=== PATIENT | female | born 1990 | race Two or more races ===

== ENCOUNTER → 2018-05-15 | Outpatient (CLI) | payer OTHER | LOC: CIMAGING 10:28 | PROVIDERS: ATTEND Surgery | DX: D17.79 Benign lipomatous neoplasm of other sites (principal) | CPT/HCPCS: 76882-PO ==

== ENCOUNTER 2018-06-21 11:23 | Day surgery (SDC) | payer OTHER ==
[2018-06-21] MEDS ORDERED: ceFAZolin 2 GM/DEXTROSE 100 ML IV ONE (11:31)
[2018-06-21] MEDS ORDERED: BUPIVACAINE 0.25% 30 ML SDV ONE ×2 (11:32→14:12)
[2018-06-21] MEDS ORDERED: LR 1,000 ML IV ONE (11:32)
--- NOTE | 2018-06-21 12:12 | POSTANESTH ---
Post Anesthetic Evaluation Cardiovascular Status: Normal, Stable Respiratory Status: Normal, Stable Level of Consciousness/Mental Status: Can Participate in Eval, Mildly Sleepy, Arousable Pain Control: Adequate, Prn Tx Ordered Nausea/Vomiting Control: Adequate, Prn Tx Ordered Complications Possibly Related to Anesthesia: None Noted
--- NOTE | 2018-06-21 12:13 | PDANEPAE ---
ANE History of Present Illness 27 yo female with posterior L shoulder lipoma for excision. ANE Past Medical History - Cardiovascular History Hx Hypertension: No Hx Arrhythmias: No Hx Chest Pain: No Hx Coronary Artery / Peripheral Vascular Disease: No Hx CHF / Valvular Disease: No Hx Palpitations: No - Pulmonary History Hx COPD: No Hx Asthma/Reactive Airway Disease: No Hx Recent Upper Respiratory Infection: No Hx Oxygen in Use at Home: No Hx Sleep Apnea: No Sleep Apnea Screening Result - Last Documented: Negative - Neurologic History Hx Cerebrovascular Accident: No Hx Seizures: No Hx Dementia: No - Endocrine History Hx Diabetes: No Hypothyroid: Yes Hyperthyroid: No Obesity: no - Renal History Hx Renal Disorders: No - Liver History Hx Hepatic Disorders: No - Neurological & Psychiatric Hx Hx Neurological and Psychiatric Disorders: Yes Neurological / Psychiatric History Comment: anxiety - prescribed a med, but does not take it - Cancer History Hx Cancer: No - Congenital Disorder History Hx Congenital Disorders: No - GI History Hx Gastrointestinal Disorders: No - Other Health History Other Health History: none - Chronic Pain History Chronic Pain: No - Surgical History Prior Surgeries: none ANE Review of Systems Review of Systems: - Exercise capacity METS (RN): 4 METS - Systems Constitutional: Reports: no symptoms Neurological: Reports: anxiety ANE Patient History - Allergies Allergies/Adverse Reactions: No Known Allergies Allergy (Verified 06/04/18 12:06) - Home Medications Home Medications: Levothyroxine 06/04/18 [Last Taken 06/21/18 07:00] - NPO status NPO Since - Liquids (Date): 06/21/18 NPO Since - Liquids (Time): 10:15 NPO Since - Solids (Date): 05/11/18 NPO Since - Solids (Time): 23:30 - Anes Hx Hx Anesthesia Complications (with details): never had anesthesia - Smoking Hx Smoking Status: Never smoked - Alcohol Use Alcohol Use: Occasionally (3/month) - Family Anes Hx Family Anes Hx: neg - N/A Family Hx Anesthesia Complications: none ANE Labs/Vital Signs - Vital Signs Blood Pressure: 71/62 Heart Rate: 55 Respiratory Rate: 18 O2 Sat (%): 97 Height: 157.48 cm Weight: 52.163 kg ANE Physical Exam - Airway Neck exam: FROM Mallampati Score: Class 1 Mouth exam: normal dental/mouth exam - Pulmonary Pulmonary: clear to auscultation - Cardiovascular Cardiovascular: regular rate and rhythym - ASA Status ASA Status: II ANE Anesthesia Plan Anesthesia Plan: GA w LMA
[2018-06-21] MEDS ORDERED: ONDANSETRON DISINTEGRATING 4 MG TAB PO PRN (13:30)
[2018-06-21] MEDS ORDERED: HYDROCODONE/APAP 5/325 TAB PO PRN ×2 (13:30→14:31)
--- NOTE | 2018-06-21 13:30 | PDHPUP ---
History & Physical Update H&P update statement: This history and physical update is based on an assessment of the patient which was completed after admission or registration (within 24 hours), but prior to the surgery/procedure. H&P update: H&P reviewed & patient examined, no change in patient's condition since H&P completed (left posterior chest wall lipoma marked )
[2018-06-21] MEDS ORDERED: MIDAZOLAM 2 MG/2 ML VIAL IVP ONE (13:31)
[2018-06-21] MEDS ORDERED: MIDAZOLAM 2 MG/2 ML VIAL ONE ×2 (13:35→13:38)
[2018-06-21] MEDS ORDERED: LIDOCAINE 2% 5 ML SDV ONE (13:43)
[2018-06-21] MEDS ORDERED: PROPOFOL/EMULSION 500 MG/50 ML BOTTLE IV ONE (13:43)
[2018-06-21] MEDS ORDERED: DEXAMETHASONE 4 MG/ML VIAL ONE (13:43)
[2018-06-21] MEDS ORDERED: fentaNYL 100 MCG/2 ML INJ ONE (13:43)
[2018-06-21] MEDS ORDERED: PHENYLEPHRINE HCL 100 MCG/ML SYR ONE (14:02)
[2018-06-21] MEDS ORDERED: ONDANSETRON 4 MG/2 ML VIAL ONE (14:12)
[2018-06-21] MEDS ORDERED: KETOROLAC 30 MG/1 ML SDV ONE (14:16)
[2018-06-21] MEDS ORDERED: PROMETHAZINE HCL 25 MG/ML INJ IVP PRN (14:31)
[2018-06-21] MEDS ORDERED: ALBUTEROL 3 ML DEYVIAL IH PRN (14:31)
[2018-06-21] MEDS ORDERED: NALOXONE HCL 0.4 MG/ML INJ IVP PRN (14:31)
[2018-06-21] MEDS ORDERED: LR 500 ML IV PRN (14:31)
[2018-06-21] MEDS ORDERED: DIAZEPAM 5 MG/ML 1 ML SYR IVP PRN (14:31)
[2018-06-21] MEDS ORDERED: fentaNYL 100 MCG/2 ML INJ IVP PRN (14:31)
--- NOTE | 2018-06-21 15:13 | POSTOPPROG ---
Post Op Note Date of Operation: 06/21/18 Surgeon: Kenrick Rivera (, FACS) Factory Helper: Hanh Snyder PAS-3 Anesthesiologist: Lina Jenkins DO Anesthesia: LMA Pre-op Diagnosis: lipoma left lateral chest wall Post-op Diagnosis: same Procedure: excision soft tissue tumor left lateral chest wall Findings: 8 x 10 x 2.5 cm Inf/Abcess present in the surg proc area at time of surgery?: No EBL: Minimal (25 ml) Drains: Gordon Gurrola (7mm)
[2018-06-21 16:36] VITALS: BP 107/75
--- NOTE | 2018-06-21 20:29 | GOP ---
[f rep st] OPERATIVE REPORT DATE OF OPERATION: 06/21/2018 SURGEON: Kenrick Rivera MD, FACS BINDERY HELPER: LOREN Sheridan3. ANESTHESIA: General by laryngeal mask. ANESTHESIOLOGIST: Lina Beatty MD. PREOPERATIVE DIAGNOSIS: Left lateral chest wall soft tissue tumor. POSTOPERATIVE DIAGNOSIS: Left lateral chest wall soft tissue tumor. PROCEDURE PERFORMED: Excision of left lateral chest wall soft tissue tumor, greater than 5 cm, deep. FINDINGS: 8 x 10 x 2.5 cm lobulated fatty tissue tumor consistent with lipoma excised from the anterior border of the latissimus muscle and submitted for permanent section. ESTIMATED BLOOD LOSS: 25 mL. DESCRIPTION OF PROCEDURE: After informed consent was obtained, the patient was brought to the operating room and placed under general anesthesia. She was positioned in the right lateral decubitus exposing the left posterior chest wall and the right arm was extended and protected from compression. An axillary roll was placed. The skin had been marked preoperatively with a marking pen indicating the location of the tumor. Before proceeding, a time- out and identification of the patient was performed. 0.25% Marcaine was used to infiltrate the skin and subcutaneous tissues surrounding the soft tissue tumor. A transverse incision was made through the natural skin lines and carried through the skin and subcutaneous tissues deep to the dermis. The nodule was encountered and it was consistent with a lipoma and was somewhat encapsulated but had multiple fingers extending from the perimeter. This was dissected slowly and carefully circumferentially dissecting out and teasing away the many fingers of this lipomatous mass. Posteriorly, it was adherent to the anterior surface of the latissimus muscle from which it was using cautery dissection and gentle blunt dissection. After the specimen was removed from the field, it was submitted for permanent section. Hemostasis was secured with cautery. A 7-Korean flat Gordon-Gurrola drain was brought through a separate stab wound and placed within the depth of the cavity. This was secured to the skin with a 3-0 Monocryl suture. After hemostasis appeared secure, the subcutaneous tissues were approximated with 3-0 Monocryl suture. Skin was closed with 4-0 Monocryl suture in a subcuticular fashion. Topical Mastisol and Steri-Strips were applied. The patient was returned to the recovery room and extubated in satisfactory condition. Needle, sponge, and instrument count correct. COMPLICATIONS: None. /[id number]/MODL MTDD
== END 2018-06-21 16:45 | disposition home or self-care (01) ==
LOC: FSGY 11:23
PROVIDERS: ATTEND Surgery
PROC: 0JBF0ZZ Excision of Left Upper Arm Subcutaneous Tissue and Fascia, Open Approach (ICD-10-PCS; principal; 2018-06-21 13:00)
DX: D17.1 Benign lipomatous neoplasm of skin and subcutaneous tissue of trunk (principal); E03.9 Hypothyroidism, unspecified; F41.9 Anxiety disorder, unspecified
CPT/HCPCS: J0690; J1100; J1885; J2250; J2370; J2405; J2704; J3010